=== PATIENT | female | born 1975 | race Caucasian/White ===

== ENCOUNTER 2018-04-15 13:23 | Observation (INO) | payer OTHER ==
[2018-04-15] MEDS ORDERED: oxyCODONE 5 MG Tab PO PRN (13:37)
[2018-04-15] MEDS ORDERED: Magnesium Hydroxide 400 MG/5 ML Susp 30 ML Cup PO PRN (13:37)
[2018-04-15] MEDS ORDERED: Ondansetron 4 MG/2 ML SDV IV PRN (13:37)
[2018-04-15] MEDS ORDERED: Polyethylene Glycol 3350 Powder 17 GM Packet PO PRN (13:37)
[2018-04-15] MEDS ORDERED: Sodium Chloride 0.9% 10 ML Syringe FLUSH PRN (13:37)
[2018-04-15] MEDS ORDERED: Albuterol 8 GM Inhaler INH PRN (13:42)
--- NOTE | 2018-04-15 13:43 | PCM.HP ---
H&P History of Present Illness - General Date of Service: 04/15/18 Admit Problem/Dx: Admission Diagnosis/Problem Admission Diagnosis/Problem Anemia Source of Information: Patient, Provider History Limitations: Reports: No Limitations - History of Present Illness Initial Comments - Free Text/Narative: Ms. Lopez is a 42-year-old woman who is admitted as a direct admission from the clinic with severe anemia and a hemoglobin of 3.9. She reports that she's had a long-standing history of anemia, last August hemoglobin was 4.1 and she received 2 units of red blood cells. She has not come in for follow-up since that time and has noted that she is feeling somewhat weaker than usual. Lab obtained on admission show a hemoglobin of 3.6 with an MCV of 76. Iron level and ferritin level are both found to be very low. She reports regular menstrual periods an average amount of bleeding. Denies hematuria, hematemesis, hematochezia, or melenic-appearing stools. She denies any previous history of bone marrow abnormality or hemolytic anemia. LDH is within normal range and reticulocyte count is mildly elevated at 1.7. She denies lightheadedness, shortness of breath, or chest pain. - Related Data Allergies/Adverse Reactions: Allergies Allergy/AdvReac Type Severity Reaction Status Date / Time No Known Allergies Allergy Verified 08/14/16 13:50 Home Medications: Home Meds Albuterol [Proair HFA] 2 puff INH Q4H PRN 08/13/16 [History] Multivitamin [Multivitamins] 1 tab PO DAILY 08/14/16 [History] H&P Review of Systems - Review of Systems: Review Of Systems: See Below General: Reports: Weakness. Denies: Fever, Chills, Diaphoresis, Decreased Appetite HEENT: Reports: No Symptoms Pulmonary: Reports: No Symptoms Cardiovascular: Reports: No Symptoms Gastrointestinal: Reports: No Symptoms Genitourinary: Reports: No Symptoms Musculoskeletal: Reports: No Symptoms Skin: Reports: No Symptoms Psychiatric: Reports: No Symptoms Neurological: Reports: No Symptoms Hematologic/Lymphatic: Reports: No Symptoms Immunologic: Reports: No Symptoms Exam - Exam Exam: See Below - Vital Signs Vital Signs: Last Vital Signs Temp 99.6 F 04/15/18 13:36 Pulse 85 04/15/18 13:36 Resp 16 04/15/18 13:36 BP 118/62 04/15/18 13:36 Pulse Ox 98 04/15/18 13:36 - Exam General: Alert, Oriented, Cooperative HEENT: Conjunctiva Clear, Hearing Intact, Mucosa Moist & [place], Normal Nasal Septum, Posterior Pharynx Clear, Pupils Equal Neck: Supple, Trachea Midline, +2 Carotid Pulse wo Bruit Lungs: Clear to Auscultation, Normal Respiratory Effort Cardiovascular: Regular Rate, Regular Rhythm, Normal S1, Normal S2. No: Systolic Murmur, Diastolic Murmur GI/Abdominal Exam: Soft, Non-Tender, No Organomegaly, No Distention Back Exam: Normal Inspection, Full Range of Motion Extremities: Non-Tender, No Pedal Edema Skin: Warm, Dry, Intact Neurological: Cranial Nerves Intact, Strength Equal Bilateral, Normal Speech, Normal Tone, Sensation Intact. No: Focal Deficit Neuro Extensive - Mental Status: Alert, Oriented x3, Normal Mood/Affect, Normal Cognition, Memory Intact - Patient Data Result Diagrams: 04/15/18 13:37 04/15/18 13:50 *Q Meaningful Use (ADM) - VTE *Q VTE Pharmacological Contraindications *Q: Patient has Severe Anemia - VTE Risk Assess *Q Each Risk Factor Represents 1 Point: Age 41 - 59 years, Obesity ( BMI > 25 kg/m2 ) Total Score 1 Point Risk Factors: 2 Each Risk Factor Represents 2 Points: None Total Score 2 Point Risk Factors: 0 Each Risk Factor Represents 3 Points: None Total Score 3 Point Risk Factors: 0 Each Risk Factor Represents 5 Points: None Total Score 5 Point Risk Factors: 0 Venous Thromboembolism Risk Factor Score *Q: 2 Problem List Initiated/Reviewed/Updated: Yes Orders Last 24hrs: Active Orders 24 hr Category Date Time Status Patient Status [ADT] Routine ADT 04/15/18 13:37 Ordered Ambulate [RC] QID Care 04/15/18 13:37 Ordered Ambulate [RC] QID Care 04/15/18 13:37 Ordered Height and Weight [RC] DAILY Care 04/15/18 13:37 Ordered Intake and Output [RC] QSHIFT Care 04/15/18 13:37 Ordered Notify Provider Vital Signs [RC] ASDIRECTED Care 04/15/18 13:37 Ordered Oxygen Therapy [RC] PRN Care 04/15/18 13:37 Ordered Up With Assistance [RC] ASDIRECTED Care 04/15/18 13:37 Ordered Up to Chair [RC] QID Care 04/15/18 13:37 Ordered VTE/DVT Education [RC] Per Unit Routine Care 04/15/18 13:37 Ordered Vital Signs [RC] Q4H Care 04/15/18 13:37 Ordered Regular Diet [DIET] Diet 04/15/18 Lunch Ordered CBC WITH AUTO DIFF [HEME] Stat Lab 04/15/18 13:37 Ordered COMPREHENSIVE METABOLIC PN,CMP [CHEM] Stat Lab 04/15/18 13:37 Ordered FERRITIN [CHEM] Routine Lab 04/15/18 13:40 Ordered FOLIC ACID [CHEM] Routine Lab 04/15/18 13:40 Ordered IRON/TIBC [CHEM] Routine Lab 04/15/18 13:40 Ordered LACTATE DEHYDROGENASE,LDH [CHEM] Routine Lab 04/15/18 13:40 Ordered RED BLOOD CELLS LP [BBK] Stat Lab 04/15/18 13:40 Ordered RETICULOCYTE COUNT [HEME] Routine Lab 04/15/18 13:40 Ordered TYPE AND SCREEN [BBK] Routine Lab 04/15/18 13:40 Ordered TYPE AND SCREEN [BBK] Stat Lab 04/15/18 13:40 Ordered VITAMIN B12 [CHEM] Routine Lab 04/15/18 13:40 Ordered Acetaminophen [Tylenol] Med 04/15/18 13:37 Ordered 650 mg PO Q4H PRN Albuterol [Ventolin HFA] Med 04/15/18 13:42 Ordered 2 puff INH Q4H PRN Docusate Sodium/Sennosides [Senna Plus] Med 04/15/18 13:37 Ordered 1 tab PO BID PRN Magnesium Hydroxide [Milk of Magnesia] Med 04/15/18 13:37 Ordered 30 ml PO Q12H PRN Multivitamin [Multivitamins] Med 04/16/18 09:00 Ordered 1 tab PO DAILY Ondansetron [Zofran] Med 04/15/18 13:37 Ordered 4 mg IV Q4H PRN Polyethylene Glycol 3350 [MiraLAX] Med 04/15/18 13:37 Ordered 17 gm PO DAILY PRN Sodium Chloride 0.9% [Saline Flush] Med 04/15/18 13:37 Ordered 10 ml FLUSH ASDIRECTED PRN oxyCODONE Med 04/15/18 13:37 Ordered 5 mg PO Q4H PRN Saline Lock Insert [OM.PC] Routine Oth 04/15/18 13:37 Ordered Transfuse Red Blood Cells [COMM] Stat Oth 04/15/18 13:40 Ordered Resuscitation Status Routine Resus Stat 04/15/18 13:37 Ordered Medication Orders Acetaminophen (Tylenol) 650 mg PO Q4H PRN PRN Reason: Pain (Mild 1-3)/fever Magnesium Hydroxide (Milk Of Magnesia) 30 ml PO Q12H PRN PRN Reason: Constipation Ondansetron HCl (Zofran) 4 mg IV Q4H PRN PRN Reason: Nausea/Vomiting Oxycodone HCl (Oxycodone) 5 mg PO Q4H PRN PRN Reason: Pain (moderate 4-6) Polyethylene Glycol (Miralax) 17 gm PO DAILY PRN PRN Reason: Constipation Senna/Docusate Sodium (Senna Plus) 1 tab PO BID PRN PRN Reason: Constipation Sodium Chloride (Saline Flush) 10 ml FLUSH ASDIRECTED PRN PRN Reason: Keep Vein Open Assessment/Plan Comment:: ASSESSMENT AND PLAN SEVERE MICROCYTIC [id number], I suspect that she has a significant component of iron malabsorption contributing to this. She has taken iron supplements in the past without significant improvement and eats red meat on a daily basis. I've explained to her the severe life-threatening nature of her current hemoglobin level and recommended that she stay for transfusion until were able to get her hemoglobin greater than 7. She refuses transfusion of more than one unit of red blood cells and will not stay overnight. She understands that she is placing herself at significant risk by doing this but refuses any further interventions. I have also explained to her that I think we need to do further testing to determine the underlying etiology of her anemia including a colonoscopy. She will consider doing this as well as further evaluation on an outpatient basis and will except iron infusion today as well. -Transfuse one unit of red blood cells -Ferrlecit 250 mg IV -Outpatient follow-up for further iron infusion and transfusion of red blood cells, per patient request -Colonoscopy and further outpatient evaluation as indicated MAINTENANCE ISSUES -DVT prophylaxis; ambulation -GI prophylaxis; not indicated -Johnson catheter; not indicated -Nutrition; regular diet -Nicotine dependence; not required CODE STATUS-FULL CODE ADMISSION STATUS-this patient will be admitted to observation status, expect no more than a one night hospital stay for evaluation and management of problems as outlined above. DISPOSITION-anticipate discharge to home after the hospital stay. PRIMARY CARE PROVIDER-Cassi Alcaraz
[2018-04-15] MEDS: Sodium Ferric Gluconate Cmplex 250 MG in Sodium Chloride 0.9% 100 ML IV ONE (16:27)
[2018-04-16] MEDS: Acetaminophen 325 MG Tab PO PRN (03:46)
[2018-04-16 08:11] VITALS: BP 118/61
--- NOTE | 2018-04-16 08:28 | PCM.DCSUM1 ---
Discharge Summary - Hospital Course Brief History: Ms. Lopez is a 42-year-old woman who was admitted to observation status as a direct admission from the clinic with severe iron deficiency anemia. Diagnosis: Stroke: No - Discharge Data Discharge Date: 04/16/18 Discharge Disposition: Home, Self-Care 01 Condition: Fair - Discharge Diagnosis/Problem(s) (1) Microcytic anemia SNOMED Code(s): 737829371 ICD Code: D50.9 - IRON DEFICIENCY ANEMIA, UNSPECIFIED Status: Acute Current Visit: Yes (2) Iron deficiency SNOMED Code(s): 61496656 ICD Code: E61.1 - IRON DEFICIENCY Status: Acute Current Visit: Yes (3) Iron malabsorption SNOMED Code(s): 574745482 ICD Code: K90.9 - INTESTINAL MALABSORPTION, UNSPECIFIED Status: Acute Current Visit: Yes - Patient Summary/Data Recommended Follow-up Testing/Procedures: She will return on Friday, April 18 for a second unit of red blood cells as well as another infusion of iron. Hemoglobin should be obtained at the time of follow-up appointment as well as regular follow-up of iron levels. She will require further IV iron infusion as well as a colonoscopy. Hospital Course: Ms. Lopez is a 42-year-old woman who was admitted as a direct admission from the clinic with severe anemia and a hemoglobin of 3.9. She reports that she's had a long-standing history of anemia, last August hemoglobin was 4.1 and she received 2 units of red blood cells. She has not come in for follow-up since that time and has noted that she is feeling somewhat weaker than usual. Lab obtained on admission show a hemoglobin of 3.6 with an MCV of 76. Iron level and ferritin level are both found to be very low. She reports regular menstrual periods an average amount of bleeding. Denies hematuria, hematemesis, hematochezia, or melenic-appearing stools. She denies any previous history of bone marrow abnormality or hemolytic anemia. LDH is within normal range and reticulocyte count is mildly elevated at 1.7. She denies lightheadedness, shortness of breath, or chest pain. On admission she refused transfusion of more than one unit of red blood cells, we did have a long discussion concerning the severe life-threatening nature of her anemia. She had transfusion of 2 units of red blood cells last August and felt sick for several days afterwards so she would agree to only one unit at this time. She did agree to iron infusion of Ferrilcet 150 mg which she tolerated well. Following morning after admission she requested discharge again we had a discussion concerning the severe life-threatening nature of her anemia , but she refused further hospitalization or transfusions at this time. She did agree to return on April 18 for 1 more unit of red blood cells and another infusion of iron. She already has a follow-up appointment with Cassi Alcaraz for April 20, hemoglobin should be obtained at that time and she should have regular follow-up of iron levels as well as further iron infusions. Colonoscopy should be scheduled for evaluation of her microcytic anemia. Activity will be as tolerated although she is instructed not to drive. She will resume her usual diet and follow-up as noted above. She should return to the hospital immediately if she develops lightheadedness weakness shortness of breath or chest pain. - Patient Instructions Diet: Usual Diet as Tolerated Activity: As Tolerated Other/Special Instructions: Patient already has follow-up appointment with Cassi Alcaraz for April 20. Hemoglobin should be obtained at time of follow-up appointment and consideration given to further iron infusion as well as colonoscopy. - Discharge Plan Home Medications: Home Meds Albuterol [Proair HFA] 2 puff INH Q4H PRN 08/13/16 [History] Multivitamin [Multivitamins] 1 tab PO DAILY 08/14/16 [History] Referrals: Yu Alcaraz PA [Primary Care Provider] - - Discharge Summary/Plan Comment DC Time >30 min.: No - Patient Data Vitals - Most Recent: Last Vital Signs Temp 99.1 F 04/16/18 08:10 Pulse 73 04/16/18 08:10 Resp 16 04/16/18 08:10 BP 118/61 04/16/18 08:10 Pulse Ox 98 04/16/18 08:10 Weight - Most Recent: 147 lb I&O - Last 24 hours: Intake & Output 04/15/18 04/16/18 04/16/18 22:59 06:59 14:59 Intake Total 320 390 400 Balance 320 390 400 Lab Results - Last 24 hrs: Laboratory Results - last 24 hr 06/27/18 06/27/18 06/27/18 Range/Units 13:37 13:50 13:50 WBC 3.4 L (4.5-11.0) K/uL RBC 1.68 L (3.30-5.50) M/uL Hgb 3.6 L* D (12.0-15.0) g/dL Hct 12.8 L (36.0-48.0) % MCV 76 L (80-98) fL MCH 21 L (27-31) pg MCHC 28 L (32-36) % Plt Count 170 (150-400) K/uL Neut % (Auto) 55 (36-66) % Lymph % (Auto) 32 (24-44) % Norton % (Auto) 10 H (2-6) % Eos % (Auto) 2 (2-4) % Baso % (Auto) 1 (0-1) % Percent Retic 1.7 H (0.5-1.5) % Sodium 139 L (140-148) mmol/L Potassium 3.3 L (3.6-5.2) mmol/L Chloride 106 (100-108) mmol/L Carbon Dioxide 21 (21-32) mmol/L Anion Gap 15.3 H (5.0-14.0) mmol/L BUN 11 (7-18) mg/dL Creatinine 0.8 (0.6-1.0) mg/dL Est Cr Clr Drug Dosing 72.45 mL/min Estimated GFR (MDRD) > 60 (>60) Glucose 87 (74-106) mg/dL Calcium 8.7 (8.5-10.1) mg/dL Iron (50-170) ug/dL TIBC (250-450) ug/dl % Saturation (20-55) % Ferritin (8-388) ng/ml Total Bilirubin 0.2 (0.2-1.0) mg/dL AST 18 (15-37) U/L ALT 18 (12-78) U/L Alkaline Phosphatase 60 (46-116) U/L Lactate Dehydrogenase (82-234) U/L Total Protein 7.5 (6.4-8.2) g/dL Albumin 3.7 (3.4-5.0) g/dL Globulin 3.8 H (2.3-3.5) g/dL Albumin/Globulin Ratio 1.0 L (1.2-2.2) Vitamin B12 (193-986) pg/ml Folate (8.6-58.9) ng/ml Blood Type Gel Antibody Screen Antibody Identification Crossmatch 04/15/18 04/15/18 04/15/18 Range/Units 13:50 13:50 13:50 WBC (4.5-11.0) K/uL RBC (3.30-5.50) M/uL Hgb (12.0-15.0) g/dL Hct (36.0-48.0) % MCV (80-98) fL MCH (27-31) pg MCHC (32-36) % Plt Count (150-400) K/uL Neut % (Auto) (36-66) % Lymph % (Auto) (24-44) % Norton % (Auto) (2-6) % Eos % (Auto) (2-4) % Baso % (Auto) (0-1) % Percent Retic (0.5-1.5) % Sodium (140-148) mmol/L Potassium (3.6-5.2) mmol/L Chloride (100-108) mmol/L Carbon Dioxide (21-32) mmol/L Anion Gap (5.0-14.0) mmol/L BUN (7-18) mg/dL Creatinine (0.6-1.0) mg/dL Est Cr Clr Drug Dosing mL/min Estimated GFR (MDRD) (>60) Glucose (74-106) mg/dL Calcium (8.5-10.1) mg/dL Iron 13 L (50-170) ug/dL TIBC 555 H (250-450) ug/dl % Saturation 2 L (20-55) % Ferritin 3 L (8-388) ng/ml Total Bilirubin (0.2-1.0) mg/dL AST (15-37) U/L ALT (12-78) U/L Alkaline Phosphatase (46-116) U/L Lactate Dehydrogenase 173 (82-234) U/L Total Protein (6.4-8.2) g/dL Albumin (3.4-5.0) g/dL Globulin (2.3-3.5) g/dL Albumin/Globulin Ratio (1.2-2.2) Vitamin B12 657 (193-986) pg/ml Folate 20.2 (8.6-58.9) ng/ml Blood Type A POSITIVE Gel Antibody Screen Positive A* Antibody Identification Anti-c Crossmatch See Detail 04/16/18 Range/Units 05:00 WBC 4.3 L (4.5-11.0) K/uL RBC 2.13 L (3.30-5.50) M/uL Hgb 5.1 L* (12.0-15.0) g/dL Hct 16.7 L (36.0-48.0) % MCV 78 L (80-98) fL MCH 24 L (27-31) pg MCHC 31 L (32-36) % Plt Count 177 (150-400) K/uL Neut % (Auto) 61 (36-66) % Lymph % (Auto) 29 (24-44) % Norton % (Auto) 8 H (2-6) % Eos % (Auto) 2 (2-4) % Baso % (Auto) 1 (0-1) % Percent Retic (0.5-1.5) % Sodium (140-148) mmol/L Potassium (3.6-5.2) mmol/L Chloride (100-108) mmol/L Carbon Dioxide (21-32) mmol/L Anion Gap (5.0-14.0) mmol/L BUN (7-18) mg/dL Creatinine (0.6-1.0) mg/dL Est Cr Clr Drug Dosing mL/min Estimated GFR (MDRD) (>60) Glucose (74-106) mg/dL Calcium (8.5-10.1) mg/dL Iron (50-170) ug/dL TIBC (250-450) ug/dl % Saturation (20-55) % Ferritin (8-388) ng/ml Total Bilirubin (0.2-1.0) mg/dL AST (15-37) U/L ALT (12-78) U/L Alkaline Phosphatase (46-116) U/L Lactate Dehydrogenase (82-234) U/L Total Protein (6.4-8.2) g/dL Albumin (3.4-5.0) g/dL Globulin (2.3-3.5) g/dL Albumin/Globulin Ratio (1.2-2.2) Vitamin B12 (193-986) pg/ml Folate (8.6-58.9) ng/ml Blood Type Gel Antibody Screen Antibody Identification Crossmatch Med Orders - Current: Current Medications Acetaminophen (Tylenol) 650 mg PO Q4H PRN PRN Reason: Pain (Mild 1-3)/fever Last Admin: 04/16/18 03:46 Dose: 650 mg Albuterol (Ventolin Hfa) 0 gm INH Q4H PRN PRN Reason: Dyspnea Magnesium Hydroxide (Milk Of Magnesia) 30 ml PO Q12H PRN PRN Reason: Constipation Multivitamins/Minerals (Thera M Plus) 1 tab PO DAILY MADDISON Ondansetron HCl (Zofran) 4 mg IV Q4H PRN PRN Reason: Nausea/Vomiting Oxycodone HCl (Oxycodone) 5 mg PO Q4H PRN PRN Reason: Pain (moderate 4-6) Polyethylene Glycol (Miralax) 17 gm PO DAILY PRN PRN Reason: Constipation Senna/Docusate Sodium (Senna Plus) 1 tab PO BID PRN PRN Reason: Constipation Sodium Chloride (Saline Flush) 10 ml FLUSH ASDIRECTED PRN PRN Reason: Keep Vein Open Discontinued Medications Ferric Sodium Gluconate Complex 250 mg/ Sodium Chloride 120 mls @ 60 mls/hr IV ONETIME ONE Stop: 04/15/18 18:14 Last Admin: 04/15/18 16:27 Dose: 60 mls/hr - Exam General: Reports: Alert, Oriented, Cooperative, No Acute Distress Lungs: Reports: Clear to Auscultation, Normal Respiratory Effort Cardiovascular: Reports: Regular Rate, Regular Rhythm, No Murmurs GI/Abdominal Exam: Soft, Non-Tender, No Organomegaly, No Distention *Q Meaningful Use (DIS) - VTE *Q VTE Pharmacological Contraindications *Q: Patient has Severe Anemia
[2018-04-16] MEDS: Multivitamins with Iron/Calcium/Folic Acid/Minerals Tab PO SCH (09:06)
[2018-04-16] MEDS ORDERED: Sodium Ferric Gluconate Cmplex 250 MG in Sodium Chloride 0.9% 100 ML IV ONE (11:00)
== END 2018-04-16 09:30 | disposition home or self-care (01) ==
LOC: JP.MS 13:23 → UNDOADMIN 13:23 → JP.MS 13:23 → UNDODISIN 04-16 09:30
PROVIDERS: ADMIT Hospitalist; ATTEND Hospitalist
DX: D50.9 Iron deficiency anemia, unspecified (principal); K90.9 Intestinal malabsorption, unspecified; Z79.899 Other long term (current) drug therapy
CPT/HCPCS: 36415; 36430; 80053; 82607; 82728; 82746; 83550; 83615; 85025; 85045; 86850; 86900; 86901; 86920; 86922; A9270-GY; J2916; J7030; P9016

== ENCOUNTER 2021-02-25 08:53 | Emergency (ER) | payer OTHER ==
[2021-02-25 09:10] VITALS: BP 128/82; PULSE 86
--- NOTE | 2021-02-25 09:50 | EDM.PDOC ---
ED HPI GENERAL MEDICAL PROBLEM - General Chief Complaint: Abdominal Pain Stated Complaint: SHARP PAIN ACROSS ABD Time Seen by Provider: 02/25/21 09:48 Source of Information: Reports: Patient History Limitations: Reports: No Limitations - History of Present Illness INITIAL COMMENTS - FREE TEXT/NARRATIVE: pt started having lower abdomanal pain yesterday and it is persistent today. She has not had a fever. She did have a hard stool this am. She has not vomited. She is not normally constipated. Onset: Today, Gradual Duration: Hour(s): Location: Reports: Abdomen Associated Symptoms: Reports: Loss of Appetite Lower Abdomen Pain Score (Numeric/FACES): 6 - Related Data Allergies Allergy/AdvReac Type Severity Reaction Status Date / Time No Known Allergies Allergy Verified 02/25/21 09:00 Home Meds: Home Meds Multivitamin [Multivitamins] 1 tab PO DAILY 08/14/16 [History] Past Medical History HEENT History: Reports: Impaired Vision Other HEENT History: wears glasses WASHER MACHINE History: Reports: , Other (See Below) Other WASHER MACHINE History: 6 c-sections Hematologic History: Reports: Anemia - Infectious Disease History Infectious Disease History: Reports: Chicken Pox, Measles, Mumps Social & Family History - Family History Family Medical History: No Pertinent Family History - Tobacco Use Tobacco Use Status *Q: Never Tobacco User Second Hand Smoke Exposure: No - Caffeine Use Caffeine Use: Reports: None - Recreational Drug Use Recreational Drug Use: No ED ROS GENERAL - Review of Systems Review Of Systems: See Below Constitutional: Reports: Decreased Appetite HEENT: Reports: No Symptoms Respiratory: Reports: No Symptoms Cardiovascular: Reports: No Symptoms Endocrine: Reports: No Symptoms GI/Abdominal: Reports: Abdominal Pain, Constipation : Reports: No Symptoms Musculoskeletal: Reports: No Symptoms Skin: Reports: No Symptoms Neurological: Reports: No Symptoms ED EXAM, GI/ABD - Physical Exam Exam: See Below Text/Narrative:: pt arrived with acute pain in hr lower abdoman. She had a stool this am but it was quite hard. She has not vomited. The pain started yesterday. Exam Limited By: No Limitations General Appearance: Alert, Moderate Distress, Other (pupils equal and reactive. ) Ears: Normal TMs Nose: Normal Inspection Throat/Mouth: Normal Inspection Head: Atraumatic Neck: Normal Inspection Respiratory/Chest: No Respiratory Distress Cardiovascular: Regular Rate, Rhythm GI/Abdominal Exam: Tender, Other (pt is tender mainly in the rt lower abdoman and supra pupic area. ) (Female) Exam: Deferred Rectal (Female) Exam: Deferred Back Exam: Normal Inspection Extremities: Normal Inspection Neurological: Alert, Oriented, Normal Cognition Psychiatric: Anxious Course - Vital Signs Last Recorded V/S: Last Vital Signs Temp 36.8 C 02/25/21 09:09 Pulse 86 02/25/21 09:09 Resp 16 02/25/21 09:09 BP 128/82 02/25/21 09:09 Pulse Ox 99 02/25/21 09:09 - Orders/Labs/Meds Orders: Active Orders 24 hr Category Date Time Status Iopamidol [Isovue-300 (61%)] Med 02/25/21 11:15 Active 100 ml IV . DIRECTED Sodium Chloride 0.9% [Normal Saline] 1,000 ml Med 02/25/21 10:30 Active IV ASDIRECTED Sodium Chloride 0.9% [Normal Saline] 80 ml Med 02/25/21 11:15 Active IV ASDIRECTED Sodium Chloride 0.9% [Saline Flush] Med 02/25/21 11:01 Active 10 ml FLUSH ASDIRECTED PRN Medication Orders Sodium Chloride (Normal Saline) 1,000 mls @ 999 mls/hr IV ASDIRECTED [facility] Last Admin: 02/25/21 10:40 Dose: 999 mls/hr Documented by: LEIGHA Sodium Chloride (Normal Saline) 80 mls @ 3 mls/sec IV ASDIRECTED [facility] Last Admin: 02/25/21 11:12 Dose: 3 mls/sec Documented by: JAILENE Iopamidol (Iopamidol 612 Mg/Ml 100 Ml Bottle) 100 ml IV . DIRECTED [facility] Last Admin: 02/25/21 11:12 Dose: 100 ml Documented by: JAILENE Sodium Chloride (Sodium Chloride 0.9% 10 Ml Syringe) 10 ml FLUSH ASDIRECTED PRN PRN Reason: Keep Vein Open Last Admin: 02/25/21 11:12 Dose: 10 ml Documented by: JAILENE Labs: Laboratory Tests 02/25/21 02/25/21 02/25/21 Range/Units 09:47 09:47 09:47 WBC 8.1 (4.5-11.0) K/uL RBC 4.01 (3.30-5.50) M/uL Hgb 11.6 L D (12.0-15.0) g/dL Hct 36.9 (36.0-48.0) % MCV 92 (80-98) fL MCH 29 (27-31) pg MCHC 31 L (32-36) % Plt Count 283 (150-400) K/uL Neut % (Auto) 72 H (36-66) % Lymph % (Auto) 18 L (24-44) % [place] % (Auto) 9 H (2-6) % Eos % (Auto) 1 L (2-4) % Baso % (Auto) 0 (0-1) % Sodium 142 (140-148) mmol/L Potassium 4.3 (3.6-5.2) mmol/L Chloride 104 (100-108) mmol/L Carbon Dioxide 26 (21-32) mmol/L Anion Gap 11.6 (5.0-14.0) mmol/L BUN 12 (7-18) mg/dL Creatinine 0.7 (0.6-1.0) mg/dL Est Cr Clr Drug Dosing 80.27 mL/min Estimated GFR (MDRD) > 60 (>60) Glucose 85 (74-106) mg/dL Calcium 9.3 (8.5-10.1) mg/dL Total Bilirubin 0.5 D (0.2-1.0) mg/dL AST 16 (15-37) U/L ALT 33 D (12-78) U/L Alkaline Phosphatase 76 (46-116) U/L C-Reactive Protein 0.72 H (0.0-0.3) mg/dL Total Protein 7.8 (6.4-8.2) g/dL Albumin 4.0 (3.4-5.0) g/dL Globulin 3.8 H (2.3-3.5) g/dL Albumin/Globulin Ratio 1.1 L (1.2-2.2) Urine Color (YELLOW) Urine Appearance (CLEAR) Urine pH (5.0-8.0) Ur Specific [place] (1.008-1.030) Urine Protein (NEGATIVE) mg/dL Urine Glucose (UA) (NEGATIVE) mg/dL Urine Ketones (NEGATIVE) mg/dL Urine Occult Blood (NEGATIVE) Urine Nitrite (NEGATIVE) Urine Bilirubin (NEGATIVE) Urine Urobilinogen (0.2-1.0) EU/dL Ur Leukocyte Esterase (NEGATIVE) Urine RBC (0-5) Urine WBC (0-5) Ur Epithelial Cells Amorphous Sediment Urine Bacteria Urine Mucus Urine Other 02/25/21 Range/Units 10:09 WBC (4.5-11.0) K/uL RBC (3.30-5.50) M/uL Hgb (12.0-15.0) g/dL Hct (36.0-48.0) % MCV (80-98) fL MCH (27-31) pg MCHC (32-36) % Plt Count (150-400) K/uL Neut % (Auto) (36-66) % Lymph % (Auto) (24-44) % [place] % (Auto) (2-6) % Eos % (Auto) (2-4) % Baso % (Auto) (0-1) % Sodium (140-148) mmol/L Potassium (3.6-5.2) mmol/L Chloride (100-108) mmol/L Carbon Dioxide (21-32) mmol/L Anion Gap (5.0-14.0) mmol/L BUN (7-18) mg/dL Creatinine (0.6-1.0) mg/dL Est Cr Clr Drug Dosing mL/min Estimated GFR (MDRD) (>60) Glucose (74-106) mg/dL Calcium (8.5-10.1) mg/dL Total Bilirubin (0.2-1.0) mg/dL AST (15-37) U/L ALT (12-78) U/L Alkaline Phosphatase (46-116) U/L C-Reactive Protein (0.0-0.3) mg/dL Total Protein (6.4-8.2) g/dL Albumin (3.4-5.0) g/dL Globulin (2.3-3.5) g/dL Albumin/Globulin Ratio (1.2-2.2) Urine Color Yellow (YELLOW) Urine Appearance Clear (CLEAR) Urine pH 7.5 (5.0-8.0) Ur Specific [place] 1.015 (1.008-1.030) Urine Protein Negative (NEGATIVE) mg/dL Urine Glucose (UA) Negative (NEGATIVE) mg/dL Urine Ketones Negative (NEGATIVE) mg/dL Urine Occult Blood Negative (NEGATIVE) Urine Nitrite Negative (NEGATIVE) Urine Bilirubin Negative (NEGATIVE) Urine Urobilinogen 0.2 (0.2-1.0) EU/dL Ur Leukocyte Esterase Negative (NEGATIVE) Urine RBC 0-5 (0-5) Urine WBC Not seen (0-5) Ur Epithelial Cells Rare Amorphous Sediment Rare Urine Bacteria Rare Urine Mucus Not seen Urine Other Meds: Medications Generic Name Dose Route Start Last Admin Trade Name Freq PRN Reason Stop Dose Admin Sodium Chloride 1,000 mls @ 999 mls/hr 02/25/21 10:30 02/25/21 10:40 Normal Saline IV 999 mls/hr ASDIRECTED MADDISON Administration Sodium Chloride 80 mls @ 3 mls/sec 02/25/21 11:15 02/25/21 11:12 Normal Saline IV 3 mls/sec ASDIRECTED MADDISON Administration Iopamidol 100 ml 02/25/21 11:15 02/25/21 11:12 Iopamidol 612 Mg/Ml 100 Ml Bottle IV 100 ml . DIRECTED MADDISON Administration Sodium Chloride 10 ml 02/25/21 11:01 02/25/21 11:12 Sodium Chloride 0.9% 10 Ml Syringe FLUSH 10 ml ASDIRECTED PRN Administration Keep Vein Open - Re-Assessments/Exams Free Text/Narrative Re-Assessment/Exam: 02/25/21 11:59 cat scan of the abdoman showed 2 ovarian cysts on the rt ovary, she has a history of hard stools. Her wbc was normal. Her crp was only mildly elevated. Her ua was clear. Departure - Departure Time of Disposition: 11:57 Disposition: Home, Self-Care 01 Condition: Fair Clinical Impression: Constipation, Right ovarian cyst - Discharge Information Referrals: Yu Alcaraz PA [Primary Care Provider] - Forms: ED Department Discharge Care Plan Goals: mag citrate 1/2 bottle after she gets home, tylenol or motrin for discomfort. If pain is persistent check with regular Sepsis Event Note (ED) - Evaluation Sepsis Screening Result: No Definite Risk - Focused Exam Vital Signs: Vital Signs Temp Pulse Resp BP Pulse Ox 02/25/21 09:09 36.8 C 86 16 128/82 99 - My Orders Last 24 Hours: My Active Orders 02/25/21 10:30 Sodium Chloride 0.9% [Normal Saline] 1,000 ml IV ASDIRECTED 02/25/21 11:01 Sodium Chloride 0.9% [Saline Flush] 10 ml FLUSH ASDIRECTED PRN 02/25/21 11:15 Iopamidol [Isovue-300 (61%)] 100 ml IV . DIRECTED Sodium Chloride 0.9% [Normal Saline] 80 ml IV ASDIRECTED - Assessment/Plan Last 24 Hours: My Active Orders 02/25/21 10:30 Sodium Chloride 0.9% [Normal Saline] 1,000 ml IV ASDIRECTED 02/25/21 11:01 Sodium Chloride 0.9% [Saline Flush] 10 ml FLUSH ASDIRECTED PRN 02/25/21 11:15 Iopamidol [Isovue-300 (61%)] 100 ml IV . DIRECTED Sodium Chloride 0.9% [Normal Saline] 80 ml IV ASDIRECTED
[2021-02-25] MEDS ORDERED: Sodium Chloride 0.9% 1,000 ML IV SCH (10:30)
[2021-02-25] MEDS ORDERED: Sodium Chloride 0.9% 10 ML Syringe FLUSH PRN (11:01)
[2021-02-25] MEDS ORDERED: Iopamidol 612 MG/ML 100 ML Bottle IV SCH (11:15)
[2021-02-25] MEDS ORDERED: Sodium Chloride 0.9% 80 ML IV SCH (11:15)
--- NOTE | 2021-02-25 11:51 | CRLCT ---
INDICATION: Diffuse abdominal pain. TECHNIQUE: Contrast-enhanced CT of the abdomen and pelvis acquired with coronal and sagittal reformations. COMPARISON: None available. FINDINGS: The hepatic vasculature is patent. There is a 5 mm low-attenuation lesion in segment 2 which is too small characterize but likely a small benign cyst. No other liver lesions are noted. No biliary dilation. Normal gallbladder. Spleen, adrenal glands, and the pancreas are unremarkable. The proximal appendix measures 6 mm in diameter proximally, upper limit of normal. There is no adjacent fat inflammation to suggest acute appendicitis. No bowel obstruction or ileus. No bowel wall thickening. There is avid enhancement in the uterus and some fluid in the endometrium. Two cysts are noted in the right ovary which measure 1.3 and 0.7 cm. The left ovary is not clearly identified. Urinary bladder is unremarkable. No adenopathy in the abdomen or pelvis. No pneumoperitoneum. No free fluid. Normal caliber abdominal aorta. Proximal aspect of major abdominal artery structures are widely patent. No aortic aneurysm. Atherosclerosis. Lung bases demonstrate minimal dependent atelectasis. No nodules or opacities. Normal heart size. There are no acute or aggressive osseous abnormalities identified. IMPRESSION: 1. cysts on right ovary measuring up to 1.3 cm, likely a benign physiologic ovarian cysts. These can be a source of pain. 2. No other cause of abdominal pain identified. Please note that all CT scans at this facility use dose modulation, iterative reconstruction, and/or weight-based dosing when appropriate to reduce radiation dose to as low as reasonably achievable. Dictated by Peng Do MD @ 02/25/2021 11:48:[address] Peng Do @ Feb 25 2021 11:48AM
== END 2021-02-25 12:23 | disposition home or self-care (01) ==
LOC: JP.ED 08:53
DX: N83.201 Unspecified ovarian cyst, right side (principal); K59.00 Constipation, unspecified
CPT/HCPCS: 36415; 74177; 80053; 81001; 85025; 86140; 99283; 99284-25; J7030; Q9967